=== PATIENT | male | born 1965 | race Caucasian/White ===

== ENCOUNTER → 2017-01-21 | Outpatient (CLI) | payer BC ==
[2017-01-21 07:44] LABS: Blood Urea Nitrogen 13 mg/dL (9-20); Non-African American GFR(MDRD) >60 (>60 ml/min/1.73 sqM)
--- NOTE | 2017-01-21 10:35 | MR ---
EXAMINATION TYPE: MR brain and iac wo/w con DATE OF EXAM: 01/21/2017 COMPARISON: NONE HISTORY: Acoustic nerve disorder,Hearing loss TECHNIQUE: Multiplanar, multisequence images of the brain and brainstem is performed without and with IV contras t, utilizing 13.5 mL intravenous Gadavist . FINDINGS: Diffusion weighted images demonstrate no evidence of a recent infarct or other diffusion abnormality. There is no extra-axial fluid collection. Scattered areas of punctate T2/FLAIR hyperintensity are s een within the subcortical and periventricular white matter without enhancement. No vasogenic or cyt otoxic edema is noted. The ventricular system and cisternal spaces are normal in size and appearance. The brain volume is age appropriate. Midline structures demonstrate normal morphology. The craniocervical junction appears within normal limits. Post contrast images demonstrate no abnormal enhancement. The dural venous sinuses appear pa tent. The visualized sinuses are clear and the globes are intact. Small amount of fluid is seen withi n the right mastoid air cells, which could clinically correlate with mastoiditis. Left mastoidal cell s are well aerated. Leftward nasal septal deviation is noted. IMPRESSION: 1. Small amount of fluid within the right mastoid air cells, which could clinically correlate with ma stoiditis. 2. No abnormal enhancement or mass involving the 7th or 8th cranial nerves to relate to acoustic schw annoma. 3. Nonspecific mild white matter changes, likely on the basis of chronic microangiopathy with no abno rmal enhancement.
== END | disposition home or self-care (01) ==
LOC: RADMRIMAIN 06:45
PROVIDERS: ATTEND Otolaryngology
DX: R90.89 Other abnormal findings on diagnostic imaging of central nervous system (principal); H91.90 Unspecified hearing loss, unspecified ear
CPT/HCPCS: 82565; 84520; 70553; A9581

== ENCOUNTER → 2020-05-05 | Outpatient (CLI) | payer BC ==
--- NOTE | 2020-05-05 08:54 | US ---
EXAMINATION TYPE: US duplex aorta DATE OF EXAM: 05/05/2020 COMPARISON: NONE CLINICAL HISTORY: I71.4 abdominal aortic aneurysm,w/o rupture. AAA EXAM MEASUREMENTS: Abdominal Aorta: Proximal: 2.2 x 2.0cm Mid: 1.7 x 1.6cm Distal: 1.8 x 1.8cm Bifurcation: RT: 1.2 x 1.1cm LT: 1.3 x 1.2cm Limited evaluation due to overlying bowel content, visualized portions show no evidence of AAA at t his time IMPRESSION: No evidence for abdominal aortic atelectasis time.
== END | disposition home or self-care (01) ==
LOC: RADUSWWP 08:25
PROVIDERS: ATTEND Family Medicine
DX: I71.4 Abdominal aortic aneurysm, without rupture (principal)
CPT/HCPCS: 93979

== ENCOUNTER → 2021-07-06 | Outpatient (CLI) | payer BC ==
--- NOTE | 2021-07-06 10:24 | US ---
EXAMINATION TYPE: US duplex aorta DATE OF EXAM: 07/06/2021 COMPARISON: NONE CLINICAL HISTORY: 55-year-old male I71.4 abdominal aortic aneurysm, w/o rupture. Lining Closer notes: Patient was told he has 4cm AAA when he had US at outside office 3+ years ago, US [address] 2015 shows no sign of that. TECHNIQUE: Multiple sonographic images of the abdominal aorta are obtained. FINDINGS: EXAM MEASUREMENTS: Abdominal Aorta: Proximal: 2.3 x 2.4cm Mid: 1.8 x 2.3cm Distal: 1.7 x 1.7cm Bifurcation: Rt = 1.2cm Lt 1.3cm Lining Closer notes: No aneurysm seen on today's exam IMPRESSION: No sonographic evidence for any significant abdominal aortic ectasia or AAA.
== END | disposition home or self-care (01) ==
LOC: RADUSWWP 08:28
PROVIDERS: ATTEND Family Medicine
DX: I71.4 Abdominal aortic aneurysm, without rupture (principal)
CPT/HCPCS: 93979